=== PATIENT | male | born 1945 | race Caucasian/White ===

== ENCOUNTER 2022-07-15 08:19 | Day surgery (SDC) | payer BC, MEDICARE ==
[2022-07-15] MEDS ORDERED: fentaNYL 100 MCG/2 ML SDV ONE (08:37)
[2022-07-15] MEDS ORDERED: Propofol 200 MG/20 ML SDV ONE (08:37)
[2022-07-15] MEDS ORDERED: Sodium Chloride 0.9% 1,000 ML IV SCH (09:30)
== END 2022-07-15 11:30 ==
LOC: JP.SDS 08:19
PROVIDERS: ATTEND Surgery
DX: Z12.11 Encounter for screening for malignant neoplasm of colon (principal); D12.3 Benign neoplasm of transverse colon; K57.30 Diverticulosis of large intestine without perforation or abscess without bleeding; E78.00 Pure hypercholesterolemia, unspecified; Z79.899 Other long term (current) drug therapy
CPT/HCPCS: 45380; 62323; 88305; J2704; J3010; J7030